=== PATIENT | female | born 1970 | race Caucasian/White ===

== ENCOUNTER 2020-06-06 09:41 | Outpatient (REF) | payer BC, SELFPAY ==
[2020-06-07 16:54] LABS: COVID-19 RT-PCR UVMMC Result Negative (Negative)
== END 2020-06-06 09:42 | disposition home or self-care (01) ==
LOC: NCHCN 09:41
PROVIDERS: PCP Internal Medicine; Visit Provider Internal Medicine
DX: Z20.822 Contact with and (suspected) exposure to COVID-19 (principal)
CPT/HCPCS: U0003

== ENCOUNTER 2022-04-07 18:50 | Outpatient (REF) | payer BC, SELFPAY ==
[2022-04-07 22:00] LABS: TSH 0.77 uIU/mL (0.36-3.74)
== END 2022-04-07 18:51 | disposition home or self-care (01) ==
LOC: NCHCN 18:50
PROVIDERS: PCP Internal Medicine; Visit Provider Internal Medicine
DX: Z00.00 Encounter for general adult medical examination without abnormal findings (principal)
CPT/HCPCS: 84443

== ENCOUNTER 2023-05-25 22:08 | Outpatient (REF) | payer BC, SELFPAY ==
[2023-05-25 20:21] LABS: HCT 40.7 % (36.0-46.0); HGB 13.5 g/dL (11.2-15.7); MCH 35.1 pg (27.0-33.0); MCHC 33.2 % (32.0-36.0); MPV 11.9 fL (8.0-11.0); Platelet Count 204 10^3/uL (130-400); RBC 3.85 10^6/uL (3.93-5.22); RDW 12.5 % (11.7-14.6); WBC 5.26 10^3/uL (4.4-10.8)
[2023-05-25 20:27] LABS: Bilirubin Negative (Negative); Blood Negative (Negative); Clarity Clear (Clear); Glucose Negative (Negative); Ketones Negative (Negative); Leukocyte Esterase Negative (Negative); Nitrite Negative (Negative); Specific Gravity 1.015 (1.005-1.025); Urobilinogen 0.2 mg/dL (Up to 0.2)
[2023-05-25 20:34] LABS: MCV 106 fL (80-95)
[2023-05-25 20:35] LABS: ALT 25 U/L (14-59); AST 27 U/L (15-37); Alkaline Phosphatase 37 U/L (46-116); BUN 14 mg/dL (7-18); Bilirubin, Total 0.2 mg/dL (0.2-1.0); CREATININE 0.8 mg/dL (0.55-1.02); Calcium 8.8 mg/dL (8.5-10.1); Chloride 104 mmol/L (98-107); Estimated GFR 89.15 (mL/min/1.73m2); Glucose 89 mg/dL (74-106); Potassium 4.1 mmol/L (3.5-5.1); Sodium 141 mmol/L (136-145); Total Protein 7.3 g/dL (6.4-8.2)
== END 2023-05-25 22:09 | disposition home or self-care (01) ==
LOC: NCHCN 22:08
PROVIDERS: PCP Internal Medicine; Visit Provider Nurse Practitioner Family
DX: Z01.818 Encounter for other preprocedural examination (principal)
CPT/HCPCS: 80053; 85027; 81003

== ENCOUNTER 2025-01-23 17:05 | Outpatient (REF) | payer BC, SELFPAY ==
[2025-01-23 20:22] LABS: HCT 40.9 % (36.0-46.0); HGB 13.8 g/dL (11.2-15.7); MCH 34.5 pg (27.0-33.0); MCHC 33.7 % (32.0-36.0); MCV 102 fL (80-95); MPV 10.8 fL (8.0-11.0); Platelet Count 207 10^3/uL (130-400); RBC 4.00 10^6/uL (3.93-5.22); RDW 12.2 % (11.7-14.6); RDW-SD 46.4 fL; WBC 5.67 10^3/uL (4.4-10.8)
[2025-01-23 20:37] LABS: TSH (W/Ref FT4) 0.78 uIU/mL (0.55-4.78)
[2025-01-23 20:43] LABS: Anion Gap 5.6 mmol/L (3-11); BUN 12 mg/dL (9-23); CO2 25.4 mmol/L (20.0-31.0); Calcium 9.3 mg/dL (8.3-10.6); Chloride 112 mmol/L (98-107); Cholesterol 134 mg/dL (<200); Glucose 90 mg/dL (74-106); HDL Cholesterol 65 mg/dL (>40); Potassium 5.0 mmol/L (3.5-5.1); Sodium 143 mmol/L (136-145)
== END 2025-01-23 17:06 | disposition home or self-care (01) ==
LOC: NCHCN 17:05
PROVIDERS: PCP Internal Medicine; Visit Provider Nurse Practitioner
DX: Z00.00 Encounter for general adult medical examination without abnormal findings (principal); Z13.220 Encounter for screening for lipoid disorders
CPT/HCPCS: 80048; 80061; 85027; 84443